=== PATIENT | male | born 1995 | race Caucasian/White ===

== ENCOUNTER → 2016-10-10 | Outpatient (CLI) | payer BC | LOC: FIMAGING 11:23 → EDSTATUS 11:38 → FIMAGING 11:39 | DX: Z09 Encounter for follow-up examination after completed treatment for conditions other than malignant neoplasm (principal); Z98.1 Arthrodesis status ==

== ENCOUNTER 2016-10-28 21:49 | Emergency (ER) | payer BC ==
--- NOTE | 2016-10-28 21:54 | EDPHY ---
H & P HPI/ROS: HPI CHIEF COMPLAINT: Niurka ingestion HISTORY OF PRESENT ILLNESS: This patient very pleasant 21-year-old male, no significant medical history does not take any daily medications no surgical history, presents to the emergency room by EMS after he ingested Niurka this evening. Patient states that he did 2 pills Niurka. He did have alcohol earlier. Denies any other ingestion. 911 was called as the patient was acting bizarre to his friends and at times nodding off and sleeping they became concerned. Upon arrival to the emergency room the patient is noted to be tachycardic, hypertensive, however, cooperative. His pupils are large 8 mm equal reactive minimally to light. Past Medical History: No medical history Past Surgical History: No surgical history Social History: [employer] student, admits to smoking marijuana occasionally, Niurka ingestion tonight and alcohol Family History: Noncontributory ROS REVIEW OF SYSTEMS: A comprehensive 10 point review of systems is otherwise negative aside from elements mentioned in the history of present illness. Exam Constitutional appears well nontoxic triage nursing summary reviewed, vital signs reviewed, awake/alert. Eyes normal conjunctivae and sclera, EOMI, PERRLA. HENT normal inspection, atraumatic, moist mucus membranes, no epistaxis, neck supple/ no meningismus, no raccoon eyes. Respiratory clear to auscultation bilaterally, normal breath sounds, no respiratory distress, no wheezing. Cardiovascular tachycardic , regular rhythm, no murmur, no edema, distal pulses normal. Gastrointestinal soft, non-tender, no rebound, no guarding, normal bowel sounds, no distension, no pulsatile mass. Genitourinary no CVA tenderness. Musculoskeletal no midline vertebral tenderness, full range of motion, no calf swelling, no tenderness of extremities, no meningismus, good pulses, neurovascularly intact. Skin pink, warm, & dry, no rash, skin atraumatic. Neurologic pupils are 8 mm equal, minimally reactive to light, awake, alert and oriented x 3, AAOx3, moves all 4 extremities equally, motor intact, sensory intact, CN II-XII intact, normal cerebellar, normal vision, normal speech. Psychiatric normal mood/affect. Heme/Lymph/Immune no lymphadenopathy. Differential Diagnosis: Includes but is not limited to in a particular order MDMA ingestion, alcohol intoxication, polysubstance abuse Medical Decision Making: Patient had an IV established IV fluids, check blood work, drug screen, alcohol level monitor. Re-evaluation: 1256AM: Re-evaluation at this time this patient is resting comfortably ambulated well to the bathroom no complaints. Not vomiting. Vital signs normalized. Friends at bedside. Patient requesting discharge. He is clinically sober stable and I feel comfortable allowing him to go home. Source: Patient, EMS Constitutional: Initial Vital Signs Temperature (C) 36.6 C 10/28/16 21:56 Heart Rate 106 H 10/28/16 21:56 Respiratory Rate 18 10/28/16 21:56 Blood Pressure 143/101 H 10/28/16 21:56 O2 Sat (%) 93 10/28/16 21:56 O2 Delivery Mode Room Air Allergies/Adverse Reactions: No Known Allergies Allergy (Unverified 10/28/16 21:56) Home Medications: Medication Instructions Recorded NK [No Known Home Meds] 10/28/16 Medical Decision Making - Data Points Laboratory Results: Laboratory Results 10/28/16 22:05 10/28/16 22:05 10/28/16 10/28/16 10/28/16 22:50 22:05 22:05 WBC 7.76 10^3/uL 10^3/uL (3.80-9.50) RBC 7.74 10^6/uL H 10^6/uL (4.40-6.38) Hgb 15.5 g/dL g/dL (13.7-17.5) Hct 48.9 % % (40.0-51.0) MCV 63.2 fL L fL (81.5-99.8) MCH 20.0 pg L pg (27.9-34.1) MCHC 31.7 g/dL L g/dL (32.4-36.7) RDW 17.8 % H % (11.5-15.2) Plt Count 261 10^3/uL 10^3/uL (150-400) MPV 9.9 fL fL (8.7-11.7) Neut % (Auto) 38.9 % L % (39.3-74.2) Lymph % (Auto) 51.7 % H % (15.0-45.0) [place] % (Auto) 7.1 % % (4.5-13.0) Eos % (Auto) 1.3 % % (0.6-7.6) Baso % (Auto) 0.9 % % (0.3-1.7) Nucleat RBC Rel Count 0.0 % % (0.0-0.2) Absolute Neuts (auto) 3.02 10^3/uL 10^3/uL (1.70-6.50) Absolute Lymphs (auto) 4.01 10^3/uL H 10^3/uL (1.00-3.00) Absolute Monos (auto) 0.55 10^3/uL 10^3/uL (0.30-0.80) Absolute Eos (auto) 0.10 10^3/uL 10^3/uL (0.03-0.40) Absolute Basos (auto) 0.07 10^3/uL 10^3/uL (0.02-0.10) Absolute Nucleated RBC 0.00 10^3/uL 10^3/uL (0-0.01) Immature Gran % 0.1 % % (0.0-1.1) Immature Gran # 0.01 10^3/uL 10^3/uL (0.00-0.10) Platelet Estimate ADEQUATE (ADEQ) Large Platelets PRESENT H Hypochromasia 2+ H Microcytic Cells 2+ H Schistocytes 1+ H Smear Review By Pending Sodium 142 mEq/L mEq/L (134-144) Potassium 4.0 mEq/L mEq/L (3.5-5.2) Chloride 104 mEq/L mEq/L (97-110) Carbon Dioxide 21 mEq/l L mEq/l (22-31) Anion Gap 17 mEq/L H mEq/L (8-16) BUN 17 mg/dL mg/dL (7-23) Creatinine 0.8 mg/dL mg/dL (0.7-1.3) Estimated GFR > 60 Glucose 117 mg/dL H mg/dL (70-100) Calcium 9.6 mg/dL mg/dL (8.5-10.4) Salicylates < 1.0 mg/dL L mg/dL (2.0-20.0) Urine Opiates Screen NEGATIVE (NEGATIVE) Acetaminophen < 10 mcg/mL L mcg/mL (10.0-30.0) Urine Barbiturates NEGATIVE (NEGATIVE) Ur Phencyclidine Scrn NEGATIVE (NEGATIVE) Ur Amphetamine Screen NON-NEGATIVE H (NEGATIVE) U Benzodiazepines Scrn NEGATIVE (NEGATIVE) Urine Cocaine Screen NEGATIVE (NEGATIVE) U Marijuana (THC) Screen NON-NEGATIVE H (NEGATIVE) Ethyl Alcohol 174 mg/dL H mg/dL (0-10) Medications Given: Discontinued Medications Sodium Chloride (Ns) 2,000 mls @ 0 mls/hr IV ONCE ONE PRN Reason: Wide Open Stop: 10/28/16 21:57 Last Admin: 10/28/16 22:03 Dose: 2,000 mls Departure - Departure Disposition: Home, Routine, Self-Care Clinical Impression: MDMA abuse Condition: Fair Instructions: Polysubstance Abuse (ED) Referrals: Patient,NotPresent [Unknown] - As per Instructions
[2016-10-28] MEDS ORDERED: NS 2,000 ML IV ONE (21:56)
[2016-10-28 21:58] VITALS: TEMP 97.9
[2016-10-28 22:24] LABS: % IMMATURE GRANULYOCYTES 0.1 % (0.0-1.1); ABSOLUTE IMMATURE GRANULOCYTES 0.01 10^3/uL (0.00-0.10); ADD DIFF? NO; ADD MORPH? YES; ADD SCAN? NO; ATYPICAL LYMPHOCYTE FLAG 30 (0-99); FRAGMENT RBC FLAG 20 (0-99); HEMATOCRIT 48.9 % (40.0-51.0); HEMOGLOBIN 15.5 g/dL (13.7-17.5); LEFT SHIFT FLG 0 (0-99); LIPEMIA HEMOLYSIS FLAG 80 (0-99); MEAN CELL HEMOGLOBIN CONCENTR. 31.7 g/dL (32.4-36.7); MEAN PLATELET VOLUME 9.9 fL (8.7-11.7); PLATELET CLUMPS FLAG 10 (0-99); PLATELET COUNT 261 10^3/uL (150-400); RED BLOOD CELL COUNT 7.74 10^6/uL (4.40-6.38); RED CELL DISTRIBUTION WIDTH 17.8 % (11.5-15.2)
[2016-10-28 22:26] LABS: MEAN CELL VOLUME 63.2 fL (81.5-99.8)
[2016-10-28 22:37] LABS: ANION GAP 17 mEq/L (8-16); CALCIUM 9.6 mg/dL (8.5-10.4); CARBON DIOXIDE 21 mEq/l (22-31); CHLORIDE 104 mEq/L (97-110); CREATININE 0.8 mg/dL (0.7-1.3); ETHANOL SERUM 174 mg/dL (0-10); GLOMERULAR FILTRATION RATE > 60; GLUCOSE 117 mg/dL (70-100); SALICYLATE < 1.0 mg/dL (2.0-20.0); SODIUM 142 mEq/L (134-144)
[2016-10-28 22:46] LABS: HYPOCHROMIA 2+; LARGE PLATELETS PRESENT; MICROCYTES 2+; SCHISTOCYTES 1+
[2016-10-28 22:48] LABS: PLATELET ESTIMATE ADEQUATE (ADEQ)
[2016-10-29 01:02] VITALS: BP 131/88; PULSE 90; RESP 16; O2SAT 96
== END 2016-10-29 01:02 | disposition home or self-care (01) ==
LOC: EDUNIT#
DX: F16.10 Hallucinogen abuse, uncomplicated (principal)
CPT/HCPCS: 80305; G0480